=== PATIENT | male | born 1975 | race American Indian/Alaskan Native ===

== ENCOUNTER 2024-02-12 18:24 | Emergency (ER) | payer MEDICAID, SELFPAY ==
[2024-02-12 18:30] VITALS: BMI 27.2
[2024-02-12 18:31] VITALS: BP 148/89; PULSE 61; RESP 19; TEMP 36.9; O2SAT 98
[2024-02-12 19:13] VITALS: PULSE 70; RESP 18; O2SAT 98
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
[2024-02-12 19:23] VITALS: BP 123/90; PULSE 67; RESP 19; TEMP 36.9; O2SAT 96
--- NOTE | 2024-02-12 19:26 | XR_ITS ---
Examination: CT cervical spine without contrast 2-D sagittal reconstructions 2-D coronal reconstructions 3-D reconstructions. Exam date and time:February 12, 2024 1937 hrs. Indications: A tree fell on the back of the patient's neck today with neck pain CTDI:vol (mGy) 26 DLP: (mGycm) 574 Technique: Multiple 2 mm axial sections of the cervical spine have been obtained. The coronal and sagittal reconstructions have been obtained. 3-D reconstructions have been obtained. Low dose protocols were performed. One or more of the following dose reduction techniques were used; automated exposure control, adjustment of the mA and/or KV according to patient size, use of iterative reconstruction technique. Findings: Axial sections demonstrate intact base of the skull. C1 exhibit satisfactory relationship to the odontoid. No acute cervical vertebral body fracture seen. Alignment posterior spinous processes satisfactory. Advanced disc narrowing C5-C6, C6-C7 Impression: No acute cervical fracture.
[2024-02-12 20:07] VITALS: PULSE 60
--- NOTE | 2024-02-12 20:20 | XR_ITS ---
Examination: CT chest with intravenous contrast CT abdomen with intravenous contrast CT pelvis with intravenous contrast 2-D coronal and sagittal reconstructions Time of exam: February 12, 2024 1126 hrs. Indications: A tree fell on the patient's back today chest and back pain CTDI: vol (mGy) : 8.06 DLP: (mGycm): 615 Technique: Multiple axial images of the chest, abdomen and pelvis with intravenous contrast, 3.0 mm slice thickness. Images obtained post intravenous injection Isovue 370 60 cc. 2-D sagittal and coronal reconstructions. Low dose protocols were performed. One or more of the following dose reduction techniques were used; automated exposure control, adjustment of the mA and/or KV according to patient size, use of iterative reconstruction technique. Findings: Thoracic aorta pulmonary arteries intact No hemopericardium No pneumothorax pulmonary contusion or hemothorax The manubrium body the sternum thoracic vertebral bodies intact Ribs appear intact No liver splenic or renal laceration, no perinephric hematoma Abdominal aorta intact, no free blood in the abdomen No gallstones No pancreatic mass Small areas of possible mild soft tissue contusion in the subcutaneous tissue posterior chest, axial image 41 on the left side axial image 23 Negative for pneumoperitoneum Urinary bladder intact No prostatomegaly Hips bones of the pelvis intact as well as lumbar vertebral bodies Impression: Suspicious for small areas of soft tissue contusion in subcutaneous fatty tissue posterior chest Thoracic aorta pulmonary arteries intact No hemopericardium, pneumothorax, pulmonary contusion or hemothorax No abdominal parenchymal laceration Abdominal aorta intact No free blood in the abdomen Osseous structures appear intact
[2024-02-12] MEDS: DIAZEPAM INJ 5 MG/ML VIAL 2 ML IVP (20:21)
[2024-02-12] MEDS: SODIUM CHLORIDE 0.9% 500 ML 500 ML 999 ML IV (20:29)
[2024-02-12 20:51] LABS: Basophils % (Auto) 0 % (0-2.5); Eosinophils % (Auto) 0 % (0-10); Hematocrit 41.6 % (41.0-53.0); Immature Granulocytes % (Auto) 0 % (0-0); Immature Granulocytes Auto 0.02 Thou/mm3 (0.00-0.00); Lactate (Lactic Acid) 1.3 mMol/L (0.4-2.0); Lymphocytes # (Auto) 2.7 Thou/mm3 (1.0-4.8); Lymphocytes % (Auto) 23 % (10-50); Mean Corpuscular HGB Conc 36.1 g/dl (31.0-37.0); Mean Corpuscular Hemoglobin 30.2 pg (25.0-35.0); Mean Corpuscular Volume 84 fL (80-100); Monocytes # (Auto) 0.7 Thou/mm3 (0.0-0.8); Monocytes % (Auto) 6 % (0-12); Neutrophils % (Auto) 70 % (37-80); Nucleated Red Blood Cell % 0 /100 WBC (0); Platelet Count 219 Thou/mm3 (140-440); RDW Standard Deviation 35.6 fL (35.1-43.9); Red Blood Count 4.96 Miln/mm3 (4.50-5.90); White Blood Count 11.4 Thou/mm3 (3.8-10.6)
[2024-02-12 21:13] LABS: Partial Thromboplastin Time 27.9 Seconds (22.0-36.0)
[2024-02-12 21:40] LABS: Alanine Aminotransferase 25 U/L (10-49); Albumin, Serum 5.1 gm/dL (3.5-5.0); Alcohol, Blood Medical < 3.0 mg/dL (0-10.0); Alkaline Phosphatase 105 U/L (46-116); Anion Gap 11 (7-16); Aspartate Amino Transferase 28 U/L (0-34); BUN/Creatinine Ratio 17 Ratio (12-20); Blood Urea Nitrogen 17 mg/dL (9-23); Calcium 10.1 mg/dL (8.3-10.6); Calcium (Corrected) 10.1 mg/dL (8.5-10.1); Chloride 105 mMol/L (98-107); Estimated Creatinine Clearance 86.3 mL/min (>60); Globulin 2.5 gm/dL (2.3-3.5); Glucose 85 mg/dL (74-106); Lipase 85 U/L (12-53); Osmolality,Calculated 278 (275-295); Potassium 3.5 mMol/L (3.4-5.1); Sodium 139 mMol/L (136-145); Total Protein 7.6 gm/dL (5.7-8.2); Troponin I < 0.020 ng/mL (0.0-0.045); eGFR > 60 See Note
[2024-02-12] MEDS: fentaNYL CIT INJ 50 mCg/ML AMP 2ML IVP (22:52)
[2024-02-12 23:22] VITALS: BP 102/64; PULSE 54; RESP 18; TEMP 36.6; O2SAT 98
[2024-02-13] MEDS: MORPHINE SULF INJ 10 MG/ML VIAL 4 MG IVP (02:06)
[2024-02-13 02:11] VITALS: BP 118/73; PULSE 64; RESP 17; TEMP 36.8; O2SAT 98
[2024-02-13] MEDS: HYDROcodone/APAP 10/325 TAB PO (03:59)
[2024-02-13] MEDS: KETOROLAC INJ 30 MG/ML VIAL IVP (04:00)
[2024-02-13 04:23] VITALS: BP 113/86; PULSE 55; RESP 16; TEMP 36.8; O2SAT 99
== END 2024-02-13 04:25 | disposition home or self-care (01) ==
PROVIDERS: Emergency Provider Emergency Medicine; PCP Nurse Practitioner Family
DX: S20.219A Contusion of unspecified front wall of thorax, initial encounter (principal); S20.419A Abrasion of unspecified back wall of thorax, initial encounter; M54.2 Cervicalgia; R79.89 Other specified abnormal findings of blood chemistry; W11.XXXA Fall on and from ladder, initial encounter; Y93.H2 Activity, gardening and landscaping
CPT/HCPCS: 36415; 71260; 72125; 74177; 80053; 80307; 80320; 81001; 83605; 83690; 84484; 85025; 85610; 85730; 96361; 96374; 96375; 99285; A4649; J1885; J2270; J3010; J3360; J7040; Q9967; A9270; G0480

== ENCOUNTER 2024-02-23 18:18 | Emergency (ER) | payer MEDICAID, SELFPAY ==
[2024-02-23 18:21] VITALS: BMI 27.3
[2024-02-23 19:16] VITALS: BP 129/79; PULSE 57; RESP 18; TEMP 36.6; O2SAT 98
--- NOTE | 2024-02-23 19:18 | XR_ITS ---
Examination: Toes, right foot 3 views Technique: Toes AP oblique lateral 3 views, right foot Date and time of exam: February 23, 2024 1930 hrs. Indications: Injury to the foot 3 days ago, toe pain Findings: No acute fracture No dislocation Impression: No acute fracture No dislocation No opaque foreign body
--- NOTE | 2024-02-23 19:18 | EDNOTE_ITS ---
Lower Extremity Injury RME/HPI General Chief Complaint: Ankle/Foot Injury Stated Complaint: I THINK I BROKE MY RIGHT TOES Time Seen by Provider: 02/23/24 19:08 Source: patient Arrival date/time: 02/23/24 18:18 48-year-old male presents department complaining of right toe pain after he struck his foot against a corner of chimney that occurred 3 days ago. Mode of arrival: wheelchair Limitations: physical limitation Related Data Home Medications ?Medication ?Instructions ?Recorded ?Confirmed acetaminophen 300 mg-codeine 30 mg 1 tab PO Q12H PRN Pain 10/10/22 10/10/22 tablet oxycodone 5 mg tablet 5 mg PO Q8H PRN Pain 10/10/22 10/10/22 Previous Rx's ?Medication ?Instructions ?Recorded docusate sodium 100 mg capsule 100 mg PO BID #20 caps 10/07/22 (Colace) diazepam 2 mg tablet (Valium) 2 mg PO BID PRN muscle spasm #6 02/13/24 tabs meloxicam 7.5 mg tablet 7.5 mg PO QDAY #10 tabs 02/23/24 Allergies Allergy/AdvReac Type Severity Reaction Status Date / Time No Known Allergies Allergy Verified 10/10/22 07:32 Review of Systems Review of Systems Systems Reviewed: All systems reviewed, normal except as documented Constitutional Constitutional: Reports system reviewed and no additional complaints, except as documented, Denies body ache(s), Denies chills and Denies fever(s) Eyes Eyes: Reports system reviewed and no additional complaints, except as documented and Denies change in vision ENT Ears, Nose, Mouth, and Throat: Reports system reviewed and no additional complaints, except as documented, Denies disequilibrium, Denies dizziness, Denies sore throat and Denies vertigo Cardiovascular Cardiovascular: Reports system reviewed and no additional complaints, except as documented, Denies chest pain and Denies dyspnea Respiratory Respiratory: Reports system reviewed and no additional complaints, except as documented, Denies chest congestion, Denies cough and Denies dyspnea Gastrointestinal Gastrointestinal: Reports system reviewed and no additional complaints, except as documented, Denies abdominal pain, Denies nausea and Denies vomiting Musculoskeletal Musculoskeletal: Reports system reviewed and no additional complaints, except as documented, Denies abnormal gait and Reports arthralgias Integumentary/Breasts Skin/Breast: Reports system reviewed and no additional complaints, except as documented, Denies erythema, Denies rash and Denies wounds Neurologic Neurologic: Reports system reviewed and no additional complaints, except as documented, Denies abnormal gait, Denies disequilibrium, Denies dizziness and Denies vertigo Past Medical History Past Medical History NEUROLOGIC: Positive Neurological Disorders, Cerebrovascular Accident, Meningitis and Head Trauma; Negative Seizures CARDIAC: Negative Cardiac Disorders or Congestive Heart Failure RESPIRATORY: Positive Asthma and Bronchitis; Negative Chronic Obstructive Pulmonary Disease (COPD) GASTROINTESTINAL: Negative Gastrointestinal Disorders GENITOURINARY: Negative Genitourinary Disorders or Renal Disease MUSCULOSKELETAL: Positive Musculoskeletal Disorders and Fractures ENT: Positive Head Trauma ENDOCRINE: Negative Endocrine Disorders, Diabetes Mellitus Type 1 or Diabetes Mellitus Type 2 HEMATOLOGIC: Negative Blood Disorders or Sickle Cell Disease OTHER HISTORY: Positive Hospitalization and Chicken Pox; Negative Autoimmune Disease, Shingles, Blood Transfusions, Blood Transfusion Reaction, Anesthesia Reactions, MRSA, VRSA, Vancomycin-Resistant Enterococci or Cancer Family History FAMILY HISTORY: Positive Family Cardiac Disorders and Family Cancer; Negative Family Surgery or Family Anesthesia Reaction Social History SMOKING STATUS: Never smoker SECOND HAND EXPOSURE: No ED Exam General Limitations: Present physical limitation General appearance: Present alert and in no apparent distress Head Head exam: Present atraumatic Eye Eye exam: Present normal appearance, PERRL and EOMI ENT ENT exam: Present normal exam, normal oropharynx and mucous membranes moist Neck Neck exam: Present normal inspection, full ROM and trachea midline Chest Chest inspection: Present normal inspection and symmetric chest wall rise Respiratory Respiratory exam: Present normal lung sounds bilaterally Cardiovascular Cardiovascular exam: Present regular rate, normal rhythm and normal heart sounds Abdominal Exam Abdominal exam: Present soft and normal bowel sounds Extremities Exam Extremities exam: Present normal inspection and full ROM Expanded Lower Extremity Exam Top foot image: 2 1. +1 toe edema Neurovascular/Tendon exam: Present normal capillary refill Gait: observed and limited by pain Back Exam Back exam: Present normal inspection and full ROM Neurological Exam Neurological exam: Present alert, oriented X3 and CN II-XII intact Psychiatric Psychiatric exam: Present normal affect and normal mood Skin Skin exam: Present warm, dry, intact and normal color Course Quality Measures none Orders Category Date Time Status XR toe RT min 2V Stat Exams 02/23/24 19:18 Completed Ketorolac Inj [Toradol Inj] Med 02/23/24 19:18 Discontinued 30 mg IM X1 ONE Vital Signs Vital signs: Vital Signs Temperature 98 F 02/23/24 19:16 Pulse Rate 57 L 02/23/24 19:16 Respiratory Rate 18 02/23/24 19:16 Blood Pressure 129/79 02/23/24 19:16 Pulse Oximetry (%) 98 02/23/24 19:16 Oxygen Delivery Method Room Air 02/23/24 19:16 98% room air within normal limits Extremity Injury, Lower MDM Narrative MDM Narrative:: 48-year-old male presents department complaining of right toe pain after he struck his foot against a corner of chimney that occurred 3 days ago. X-rays were unremarkable for any acute fracture. Patient's affected toe was neurovascularly intact. Patient data External records reviewed:: [facility] previous records Clinical information provided by:: patient Social determinants that could affect healthcare access:: none Patient has the following chronic illnesses:: See chart How is presenting disease/condition affected by chronic disease/condition?: u neffected by Evaluation data The following diagnostics were reviewed and interpreted by me:: radiology exam(s) Lab and/or radiology exams considered but not ordered:: Ordered Interpretation Summary: Interpreted by me Medications / Prescriptions Medications or Prescriptions considered but not ordered:: Ordered Medication administrations:: Medication Administration History Discontinued Medications Ketorolac Tromethamine (Ketorolac Inj 60 Mg/2 Ml Vial) 30 mg IM X1 ONE Stop: 02/23/24 19:19 Last Admin: 02/23/24 19:24 Dose: 30 mg Documented By: OA Given Consultations Consultation(s) initiated? (list below): No Diagnosis Extremity Injury, Lower Differential Diagnosis: fracture of toe Most likely diagnosis given after review of the tests above:: Sprain of toe Admission Indicated Admission indicated?: not indicated Admission Request Was there a request for admission?: No Disposition Plan Disposition Plan: Discharge Discharge Attestation Discharge Attestation: The patient and all family members were given an opportunity to ask questions and understood the discharge instructions. Discharge instructions specifically effects, indications for sooner follow up or return to the emergency department, and the expected course of current diagnosis. Patient condition: Stable Discharge Plan Plan Patient Disposition: HOME (Self Care) Disposition Comment: Stable Prescriptions/Referrals Prescriptions/Med Rec: New meloxicam 7.5 mg tablet 7.5 mg PO QDAY Qty: 10 0RF No Action acetaminophen-codeine 300-30 mg Tablet 1 tab PO Q12H PRN (Reason: Pain) oxycodone 5 mg Tablet 5 mg PO Q8H PRN (Reason: Pain) docusate sodium [Colace] 100 mg capsule 100 mg PO BID Qty: 20 0RF Rx Instructions: While on Oxycodone diazepam [Valium] 2 mg tablet 2 mg PO BID PRN (Reason: muscle spasm) Qty: 6 0RF Referrals: Clare Morin PA-C ([facility]) [Primary Care Provider] - In 1 week Problem List Clinical Impression: Sprain of toe Patient/Caregiver Discharge Instructions Discharge Activity: activity as tolerated Education Materials: ED Toe Sprain Additional Instructions: Take medication as prescribed. Your chest x-ray did not show any acute fracture. Follow-up with primary care provider in 2 to 3 days. Return to emergency department for any worsening symptoms or as needed. Print Language: Bahraini Stand Alone Forms: Maryellen Award Info., Patient Portal Info Letter PA/SONA Supervising Physician ARELI/SONA Supervising Physician: Dr. Sifuentes
[2024-02-23] MEDS: KETOROLAC INJ 60 MG/2 ML VIAL 30 MG IM (19:24)
== END 2024-02-23 22:46 | disposition home or self-care (01) ==
PROVIDERS: Emergency Provider Emergency Medicine; PCP Nurse Practitioner Family
DX: S93.509A Unspecified sprain of unspecified toe(s), initial encounter (principal); W22.09XA Striking against other stationary object, initial encounter
CPT/HCPCS: 73660; 96372; 99283; J1885

== ENCOUNTER 2024-03-01 18:20 | Emergency (ER) | payer MEDICAID, SELFPAY ==
[2024-03-01 19:17] VITALS: BP 138/80; PULSE 65; RESP 18; TEMP 36.8; O2SAT 98; BMI 27.8
--- NOTE | 2024-03-01 19:21 | XR_ITS ---
Examination: CT cervical spine without contrast 2-D sagittal reconstructions 2-D coronal reconstructions 3-D reconstructions. Exam date and time:March 01, 2024 1934 hrs. Indications: Neck pain beginning 2 weeks ago Comparison: February 12, 2024 CTDI:vol (mGy) 8.38 DLP: (mGycm) 197 Technique: Multiple 2 mm axial sections of the cervical spine have been obtained. The coronal and sagittal reconstructions have been obtained. 3-D reconstructions have been obtained. Low dose protocols were performed. One or more of the following dose reduction techniques were used; automated exposure control, adjustment of the mA and/or KV according to patient size, use of iterative reconstruction technique. Findings: Axial sections demonstrate intact base of the skull. C1 exhibit satisfactory relationship to the odontoid. No acute cervical vertebral body fracture seen. Alignment posterior spinous processes satisfactory. Advanced disc narrowing C5-C6, C6-C7 C5-C6 moderate bilateral neural foraminal stenosis C6-C7 moderate left neural foraminal stenosis Impression: No acute cervical fracture. Advanced degenerative disc disease C5-C6, C6-C7 C5-C6 moderate left neural foraminal stenosis C6-C7 moderate left neural foraminal stenosis MRI cervical spine without contrast follow-up would be preferable in assessing for acquired soft tissue spinal stenosis
--- NOTE | 2024-03-01 19:21 | XR_ITS ---
Examination: CT brain head without contrast. 2-D sagittal coronal reconstructions Date and time of exam:March 01, 2024 1931 hrs. Indications: Headaches beginning 2 weeks ago Comparison: April 04, 2016 CTDI: vol (mGy):56.6 DLP: (mGycm):1008 Technique: Multiple CT axial sections of the brain have been obtained, 5 mm slice thickness. Contrast has not been administered. 2-D sagittal, coronal reconstructions have been obtained Low dose protocols were performed. One or more of the following dose reduction techniques were used; automated exposure control, adjustment of the mA and/or KV according to patient size, use of iterative reconstruction technique. Findings: No significant ventricular enlargement. Intra-axial or extra-axial hemorrhage density is not seen. No mass effect or midline shift Basal cisterns are not remarkable. Fourth ventricle is midline. Cranial vault intact. Impression: Negative for acute hemorrhage, mass effect or midline shift If new onset headaches persist, consider brain MRI follow-up
--- NOTE | 2024-03-01 19:21 | PD.EDRME ---
Rapid Medical Screening Exam RME Arrival date/time: 03/01/24 18:20 48-year-old male past emergency department complaining of neck and head pain since suffering injury 02/12/2024 tree branch fell on his back. Chief Complaint: Neck Pain/Injury Time Seen by Provider: 03/01/24 19:18 Vital signs: Vital Signs Temperature 98.2 F 03/01/24 19:17 Pulse Rate 65 03/01/24 19:17 Respiratory Rate 18 03/01/24 19:17 Blood Pressure 138/80 H 03/01/24 19:17 Pulse Oximetry (%) 98 03/01/24 19:17 Oxygen Delivery Method Room Air 03/01/24 19:17 Vital signs reviewed by provider: Yes
[2024-03-01] MEDS: HYDROcodone/APAP 5/325 TABLET 1 TAB PO (19:29)
--- NOTE | 2024-03-01 20:23 | EDNOTE_ITS ---
ED Neck Injury Pain RME/HPI General Chief Complaint: Neck Pain/Injury Stated Complaint: NECK/BACK PAIN, NAUSEA WHEN TURNING HEAD Time Seen by Provider: 03/01/24 19:18 Source: patient Arrival date/time: 03/01/24 18:20 48-year-old male past emergency department complaining of neck and head pain since suffering injury 02/12/2024 tree branch fell on his back. Mode of arrival: ambulatory Limitations: no limitations RME / HPI RME / HPI Narrative: 03/01/24 18:20 48-year-old male past emergency department complaining of neck and head pain since suffering injury 02/12/2024 tree branch fell on his back. Related Data Home Medications ?Medication ?Instructions ?Recorded ?Confirmed acetaminophen 300 mg-codeine 30 mg 1 tab PO Q12H PRN Pain 10/10/22 10/10/22 tablet oxycodone 5 mg tablet 5 mg PO Q8H PRN Pain 10/10/22 10/10/22 Previous Rx's ?Medication ?Instructions ?Recorded docusate sodium 100 mg capsule 100 mg PO BID #20 caps 10/07/22 (Colace) diazepam 2 mg tablet (Valium) 2 mg PO BID PRN muscle spasm #6 02/13/24 tabs meloxicam 7.5 mg tablet 7.5 mg PO QDAY #10 tabs 02/23/24 cyclobenzaprine 10 mg tablet 10 mg PO TID PRN muscle spasm #10 03/01/24 tabs ibuprofen 600 mg tablet 600 mg PO Q8H PRN pain #20 tabs 03/01/24 Allergies Allergy/AdvReac Type Severity Reaction Status Date / Time No Known Allergies Allergy Verified 10/10/22 07:32 Review of Systems Review of Systems Systems Reviewed: All systems reviewed, normal except as documented Constitutional Constitutional: Reports system reviewed and no additional complaints, except as documented, Reports body ache(s), Denies chills and Denies fever(s) Eyes Eyes: Reports system reviewed and no additional complaints, except as documented and Denies change in vision ENT Ears, Nose, Mouth, and Throat: Reports system reviewed and no additional complaints, except as documented, Denies disequilibrium, Denies dizziness, Reports neck pain, Denies sore throat and Denies vertigo Cardiovascular Cardiovascular: Reports system reviewed and no additional complaints, except as documented, Denies chest pain and Denies dyspnea Respiratory Respiratory: Reports system reviewed and no additional complaints, except as documented, Denies chest congestion, Denies cough and Denies dyspnea Gastrointestinal Gastrointestinal: Reports system reviewed and no additional complaints, except as documented, Denies abdominal pain, Denies nausea and Denies vomiting Musculoskeletal Musculoskeletal: Reports system reviewed and no additional complaints, except as documented, Denies abnormal gait, Denies arthralgias and Reports neck pain Integumentary/Breasts Skin/Breast: Reports system reviewed and no additional complaints, except as documented, Denies erythema, Denies rash and Denies wounds Neurologic Neurologic: Reports system reviewed and no additional complaints, except as documented, Denies abnormal gait, Denies disequilibrium, Denies dizziness and Denies vertigo Past Medical History Past Medical History NEUROLOGIC: Positive Neurological Disorders, Cerebrovascular Accident, Meningitis and Head Trauma; Negative Seizures CARDIAC: Negative Cardiac Disorders or Congestive Heart Failure RESPIRATORY: Positive Asthma and Bronchitis; Negative Chronic Obstructive Pulmonary Disease (COPD) GASTROINTESTINAL: Negative Gastrointestinal Disorders GENITOURINARY: Negative Genitourinary Disorders or Renal Disease MUSCULOSKELETAL: Positive Musculoskeletal Disorders and Fractures ENT: Positive Head Trauma ENDOCRINE: Negative Endocrine Disorders, Diabetes Mellitus Type 1 or Diabetes Mellitus Type 2 HEMATOLOGIC: Negative Blood Disorders or Sickle Cell Disease OTHER HISTORY: Positive Hospitalization and Chicken Pox; Negative Autoimmune Disease, Shingles, Blood Transfusions, Blood Transfusion Reaction, Anesthesia Reactions, MRSA, VRSA, Vancomycin-Resistant Enterococci or Cancer Family History FAMILY HISTORY: Positive Family Cardiac Disorders and Family Cancer; Negative Family Surgery or Family Anesthesia Reaction Social History SMOKING STATUS: Never smoker SECOND HAND EXPOSURE: No ED Exam General Limitations: Present no limitations General appearance: Present alert and in no apparent distress Head Head exam: Present atraumatic Eye Eye exam: Present normal appearance, PERRL and EOMI ENT ENT exam: Present normal exam, normal oropharynx and mucous membranes moist Neck Neck exam: Present normal inspection, full ROM and trachea midline Chest Chest inspection: Present normal inspection and symmetric chest wall rise Respiratory Respiratory exam: Present normal lung sounds bilaterally Cardiovascular Cardiovascular exam: Present regular rate, normal rhythm and normal heart sounds Abdominal Exam Abdominal exam: Present soft and normal bowel sounds Extremities Exam Extremities exam: Present normal inspection and full ROM Back Exam Back exam: Present normal inspection and full ROM Neurological Exam Neurological exam: Present alert, oriented X3 and CN II-XII intact Psychiatric Psychiatric exam: Present normal affect and normal mood Skin Skin exam: Present warm, dry, intact and normal color Course Quality Measures none Orders Category Date Time Status CT cervical spine wo con Stat Exams 03/01/24 19:[address] head/brain wo con Stat Exams 03/01/24 19:21 Completed HYDROcodone*/APAP 5/325 [[place] 5/325] Med 03/01/24 19:21 Discontinued 1 tab PO X1 ONE Vital Signs Vital signs: Vital Signs Temperature 98.2 F 03/01/24 19:17 Pulse Rate 65 03/01/24 19:17 Respiratory Rate 18 03/01/24 19:17 Blood Pressure 138/80 H 03/01/24 19:17 Pulse Oximetry (%) 98 03/01/24 19:17 Oxygen Delivery Method Room Air 03/01/24 19:17 98% room air within normal limits Neck Pain MDM Narrative MDM Narrative:: 48-year-old male past emergency department complaining of neck and head pain since suffering injury 02/12/2024 tree branch fell on his back. CT scanning of head was unremarkable. CT cervical spine findings No acute cervical fracture. Advanced degenerative disc disease C5-C6, C6-C7 C5-C6 moderate left neural foraminal stenosis C6-C7 moderate left neural foraminal stenosis Patient reported significant permanent pain with pain medication. Patient has neck supple with full active range of motion with some reported pain. Patient data External records reviewed:: [facility] previous records Clinical information provided by:: patient Social determinants that could affect healthcare access:: none Patient has the following chronic illnesses:: See chart How is presenting disease/condition affected by chronic disease/condition?: uneffected by Evaluation data The following diagnostics were reviewed and interpreted by me:: radiology exam(s) Lab and/or radiology exams considered but not ordered:: Ordered Interpretation Summary: Interpreted by me Medications / Prescriptions Medications or Prescriptions considered but not ordered:: Ordered Medication administrations:: Medication Administration History Discontinued Medications Hydrocodone Bitart/Acetaminophen (Hydrocodone/Apap 5/325 Tablet) 1 tab PO X1 ONE Stop: 03/01/24 19:22 Last Admin: 03/01/24 19:29 Dose: 1 tab Documented By: NYA Given Consultations Consultation(s) initiated? (list below): No Diagnosis Neck Differential Diagnosis: disc disorder of cervical region, closed subluxation of cervical spine, fracture of cervical spine without lesion of spinal cord, cervical radiculopathy, vertebral artery dissection, torticollis, cervical spondylosis and strain of neck muscle Most likely diagnosis given after review of the tests above:: Degenerative disc disease cervical Admission Indicated Admission indicated?: not indicated Admission Request Was there a request for admission?: No Disposition Plan Disposition Plan: Discharge Discharge Attestation Discharge Attestation: The patient and all family members were given an opportunity to ask questions and understood the discharge instructions. Discharge instructions specifically effects, indications for sooner follow up or return to the emergency department, and the expected course of current diagnosis. Patient condition: Stable Discharge Plan Plan Patient Disposition: HOME (Self Care) Disposition Comment: Stable Prescriptions/Referrals Prescriptions/Med Rec: New cyclobenzaprine 10 mg tablet 10 mg PO TID PRN (Reason: muscle spasm) Qty: 10 0RF ibuprofen 600 mg tablet 600 mg PO Q8H PRN (Reason: pain) Qty: 20 0RF No Action acetaminophen-codeine 300-30 mg Tablet 1 tab PO Q12H PRN (Reason: Pain) oxycodone 5 mg Tablet 5 mg PO Q8H PRN (Reason: Pain) docusate sodium [Colace] 100 mg capsule 100 mg PO BID Qty: 20 0RF Rx Instructions: While on Oxycodone diazepam [Valium] 2 mg tablet 2 mg PO BID PRN (Reason: muscle spasm) Qty: 6 0RF meloxicam 7.5 mg tablet 7.5 mg PO QDAY Qty: 10 0RF Referrals: Clare Morin PA-C ([facility]) [Primary Care Provider] - In 1 week Problem List Clinical Impression: Degenerative disc disease, cervical Patient/Caregiver Discharge Instructions Discharge Activity: activity as tolerated Education Materials: ED Degenerative Disk Disease Additional Instructions: Take medication as prescribed. Follow-up with primary care provider in 2 to 3 days and request MRI of cervical neck if symptoms persist. Return to emergency department for any worsening symptoms or as needed. Print Language: Polish Stand Alone Forms: Maryellen Award Info., Patient Portal Info Letter PA/SONA Supervising Physician PA/SONA Supervising Physician: Dr. Sifuentes
== END 2024-03-01 20:34 | disposition home or self-care (01) ==
PROVIDERS: Emergency Provider Emergency Medicine; PCP Nurse Practitioner Family
DX: M50.122 Cervical disc disorder at C5-C6 level with radiculopathy (principal); M48.02 Spinal stenosis, cervical region; R51.9 Headache, unspecified; W22.8XXA Striking against or struck by other objects, initial encounter
CPT/HCPCS: 70450; 72125; 99284; A9270

== ENCOUNTER → 2024-03-31 | Outpatient (CLI) | payer MEDICAID, SELFPAY ==
--- NOTE | 2024-03-31 07:45 | XR_ITS ---
Examination: MRI cervical spine without intravenous contrast Date and time of exam: March 31, 2024 0818 hours INDICATIONS: Injury to the neck February 12, 2024 with persistent neck pain COMPARISON: April 05, 2016 Technique: Multiple axial and sagittal sections of the cervical spine to been obtained. T2 weighted sagittal sections, TR 3, 270, TE 117 T1-weighted sagittal sections, TR 500, TE 11 T1-weighted axial sections, TR 607, TE 12, axial sections TR 18, TE 27 and T2 weighted transverse sections, TR 3920, TE 122. Findings: Adequate alignment cervical vertebral bodies Moderate disc narrowing C5-C6 No cervical fracture Intact odontoid No localized enlargement cervical cord Diffuse increased signal in the cervical cord C2-C3 no disc protrusion C3-C4 1 mm central disc protrusion C4-C5 moderate right neural foraminal stenosis C5-C6 3 mm central subarticular osteophyte disc complex, moderate bilateral neural foraminal stenosis C6-C7 3 mm central subarticular osteophyte disc complex, advanced bilateral neural foraminal stenosis C7-T1 no disc protrusion IMPRESSION: C4-C5 moderate right neural foraminal stenosis C5-C6 3 mm central subarticular osteophyte disc complex, moderate bilateral neural foraminal stenosis C6-C7 3 mm central subarticular osteophyte disc complex, advanced bilateral neural foraminal stenosis
== END | disposition home or self-care (01) ==
LOC: SMRI 07:50
PROVIDERS: PCP Nurse Practitioner Family; Referring Provider Nurse Practitioner Family; Visit Provider Nurse Practitioner Family
DX: M48.02 Spinal stenosis, cervical region (principal); M25.78 Osteophyte, vertebrae
CPT/HCPCS: 72141

== ENCOUNTER 2024-11-24 18:52 | Emergency (ER) | payer MEDICAID, SELFPAY ==
--- NOTE | 2024-11-24 18:56 | EKG_ITS ---
[facility] Test Date: 2024-11-24 Pat Name: SARAVANAN FISCHER Department: Room: - Gender: Male [employer] Worker: : 1975 Requested By: ED Temporary Provider Order Number: [id number] Reading MD: ED Temporary Provider Measurements Intervals [place] Rate: 58 P: 55 TN: 175 QRS: 25 QRSD: 96 T: 32 QT: 391 QTc: 385 Interpretive Statements SINUS BRADYCARDIA Compared to ECG 03/26/2018 13:34:41 No significant changes /store/S0/[id number]
[2024-11-24 19:22] VITALS: BP 154/104; PULSE 61; RESP 20; TEMP 37; O2SAT 97; BMI 31.1
--- NOTE | 2024-11-24 19:34 | XR_ITS ---
Examination: PA chest single view Technique: Upright PA chest single view Date and time: November 24, 2024, 194 hrs. Indications: Chest pain shortness of breath beginning one week ago. Findings: Normal heart size. The lungs are clear. The osseous structures are intact Impression: No active disease
--- NOTE | 2024-11-24 19:39 | PD.EDCHEST ---
ED Chest Pain RME/HPI General Chief Complaint: Chest Pain Stated Complaint: CHEST PAIN, TINGLING TO LEFT ARM Time Seen by Provider: 11/24/24 19:33 Arrival date/time: 11/24/24 18:52 49M with history of asthma and anxiety presents to ED with several weeks of CP. Patient has had a lot more stress in life recently. Patient usually takes Valium, but ran out. Limitations: no limitations Related Data Home Medications ?Medication ?Instructions ?Recorded ?Confirmed acetaminophen 300 mg-codeine 30 mg 1 tab PO Q12H PRN Pain 10/10/22 10/10/22 tablet oxycodone 5 mg tablet 5 mg PO Q8H PRN Pain 10/10/22 10/10/22 Previous Rx's ?Medication ?Instructions ?Recorded docusate sodium 100 mg capsule 100 mg PO BID #20 caps 10/07/22 (Colace) diazepam 2 mg tablet (Valium) 2 mg PO BID PRN muscle spasm #6 02/13/24 tabs meloxicam 7.5 mg tablet 7.5 mg PO QDAY #10 tabs 02/23/24 cyclobenzaprine 10 mg tablet 10 mg PO TID PRN muscle spasm #10 03/01/24 tabs ibuprofen 600 mg tablet 600 mg PO Q8H PRN pain #20 tabs 03/01/24 diazepam 5 mg tablet (Valium) 5 mg PO BID PRN anxiety #7 tabs 11/24/24 Allergies Allergy/AdvReac Type Severity Reaction Status Date / Time No Known Allergies Allergy Verified 10/10/22 07:32 Review of Systems Review of Systems Systems Reviewed: All systems reviewed, normal except as documented Cardiovascular Cardiovascular: Reports as per HPI and Reports chest pain Psychiatric Psychiatric: Reports as per HPI and Reports anxiety Past Medical History Past Medical History NEUROLOGIC: Positive Neurological Disorders, Cerebrovascular Accident, Meningitis and Head Trauma; Negative Seizures CARDIAC: Negative Cardiac Disorders or Congestive Heart Failure RESPIRATORY: Positive Asthma and Bronchitis; Negative Chronic Obstructive Pulmonary Disease (COPD) GASTROINTESTINAL: Negative Gastrointestinal Disorders GENITOURINARY: Negative Genitourinary Disorders or Renal Disease MUSCULOSKELETAL: Positive Musculoskeletal Disorders and Fractures ENT: Positive Head Trauma ENDOCRINE: Negative Endocrine Disorders, Diabetes Mellitus Type 1 or Diabetes Mellitus Type 2 HEMATOLOGIC: Negative Blood Disorders or Sickle Cell Disease OTHER HISTORY: Positive Hospitalization and Chicken Pox; Negative Autoimmune Disease, Shingles, Blood Transfusions, Blood Transfusion Reaction, Anesthesia Reactions, MRSA, VRSA, Vancomycin-Resistant Enterococci or Cancer Family History FAMILY HISTORY: Positive Family Cardiac Disorders and Family Cancer; Negative Family Surgery or Family Anesthesia Reaction Social History SMOKING STATUS: Never smoker SECOND HAND EXPOSURE: No ED Exam General Limitations: Present no limitations General appearance: Present alert, in no apparent distress and anxious Head Head exam: Present atraumatic Neck Neck exam: Present normal inspection, full ROM and trachea midline Chest Chest inspection: Present normal inspection and symmetric chest wall rise Neurological Exam Neurological exam: Present alert and oriented X3 Psychiatric Psychiatric exam: Present normal affect, normal mood and anxious Skin Skin exam: Present warm, dry, intact and normal color Course Quality Measures none Orders Category Date Time Status EKG (ED ONLY) *Do not use* NOW Care 11/24/24 18:56 Completed EKG (ED Only) Stat Exams 11/24/24 18:56 Draft XR chest 1V portable Stat Exams 11/24/24 19:34 Completed CBC Stat Lab 11/24/24 19:42 Completed Comprehensive Metabolic Panel Stat Lab 11/24/24 19:42 Completed Troponin I Stat Lab 11/24/24 19:42 Completed Diazepam [Valium] Med 11/24/24 19:34 Discontinued 5 mg PO X1 ONE Vital Signs Vital signs: Vital Signs Temperature 98.6 F 11/24/24 19:22 Pulse Rate 61 11/24/24 19:22 Respiratory Rate 20 11/24/24 19:22 Blood Pressure 154/104 H 11/24/24 19:22 Pulse Oximetry (%) 97 11/24/24 19:22 Oxygen Delivery Method Room Air 11/24/24 19:22 O2 at 97% on RA and WNLs Chest Pain MDM Narrative MDM Narrative:: 49M with history of asthma and anxiety presents to ED with several weeks of CP. Patient has had a lot more stress in life recently. Patient usually takes Valium, but ran out. Physical exam reveals anxious male. Patient is afebrile and alert. EKG is sinus linda of 58. CXR unremarkable. No leukocytosis or gross anemia. CMP unremarkable. Trop normal. 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 Patient data External records reviewed:: [facility] previous records Clinical information provided by:: patient Social determinants that could affect healthcare access:: mental health Patient has the following chronic illnesses:: anxiety and asthmaq How is presenting disease/condition affected by chronic disease/condition?: exacerbated by Evaluation data The following diagnostics were reviewed and interpreted by me:: lab results, radiology exam(s) and EKG tracing(s) Lab and/or radiology exams considered but not ordered:: ordered Interpretation Summary: above Medications / Prescriptions Medications or Prescriptions considered but not ordered:: ordered Medication administrations:: Medication Administration History Discontinued Medications Diazepam (Diazepam 5 Mg Tablet) 5 mg PO X1 ONE Stop: 11/24/24 19:35 Last Admin: 11/24/24 19:45 Dose: 5 mg Documented By: MF above Consultations Consultation(s) initiated? (list below): No Diagnosis Chest Pain Differential Diagnosis: fracture of rib, pneumothorax, stable angina, unstable angina pectoris, atypical chest pain, st elevation myocardial infarction, costochondritis, chest pain, biliary colic and other (anxiety due to stress) Most likely diagnosis given after review of the tests above:: anxiety due to stress Admission Indicated Admission indicated?: not indicated Admission Request Was there a request for admission?: No Disposition Plan Disposition Plan: Discharge Discharge Attestation Discharge Attestation: The patient and all family members were given an opportunity to ask questions and understood the discharge instructions. Discharge instructions specifically effects, indications for sooner follow up or return to the emergency department, and the expected course of current diagnosis. Patient condition: Stable Discharge Plan Plan Patient Disposition: HOME (Self Care) Discharge Disposition comment: Stable Prescriptions/Referrals Prescriptions/Med Rec: New diazepam [Valium] 5 mg tablet 5 mg PO BID PRN (Reason: anxiety) Qty: 7 0RF No Action acetaminophen-codeine 300-30 mg Tablet 1 tab PO Q12H PRN (Reason: Pain) oxycodone 5 mg Tablet 5 mg PO Q8H PRN (Reason: Pain) docusate sodium [Colace] 100 mg capsule 100 mg PO BID Qty: 20 0RF Rx Instructions: While on Oxycodone cyclobenzaprine 10 mg tablet 10 mg PO TID PRN (Reason: muscle spasm) Qty: 10 0RF ibuprofen 600 mg tablet 600 mg PO Q8H PRN (Reason: pain) Qty: 20 0RF diazepam [Valium] 2 mg tablet 2 mg PO BID PRN (Reason: muscle spasm) Qty: 6 0RF meloxicam 7.5 mg tablet 7.5 mg PO QDAY Qty: 10 0RF Referrals: Clare Morin PA-C ([facility]) [Primary Care Provider] - In 1 week Problem List Clinical Impression: Anxiety in acute stress reaction Patient/Caregiver Discharge Instructions Education Materials: Your Body's Response to Anxiety Additional Instructions: Please follow-up with PCP within 24-48 hours and return immediately if symptoms worsen. Print Language: German Stand Alone Forms: Patient Portal Info Letter ARELI/SONA Supervising Physician ARELI/SONA Supervising Physician: Dr. Palma
[2024-11-24] MEDS: DIAZEPAM 5 MG TABLET PO (19:45)
[2024-11-24 20:10] LABS: Basophils # (Auto) 0.0 Thou/mm3 (0.0-0.2); Basophils % (Auto) 0 % (0-2.5); Eosinophils # (Auto) 0.2 Thou/mm3 (0.0-0.5); Eosinophils % (Auto) 3 % (0-10); Hematocrit 42.4 % (41.0-53.0); Hemoglobin 14.4 g/dL (13.5-16.0); Immature Granulocytes Auto 0.01 Thou/mm3 (0.00-0.00); Lymphocytes # (Auto) 2.9 Thou/mm3 (1.0-4.8); Lymphocytes % (Auto) 41 % (10-50); Mean Corpuscular HGB Conc 34.0 g/dl (31.0-37.0); Mean Corpuscular Hemoglobin 29.9 pg (25.0-35.0); Mean Corpuscular Volume 88 fL (80-100); Monocytes # (Auto) 0.6 Thou/mm3 (0.0-0.8); Monocytes % (Auto) 8 % (0-12); Neutrophils # (Auto) 3.4 Thou/mm3 (1.8-7.7); Neutrophils % (Auto) 48 % (37-80); Nucleated Red Blood Cell # 0.00 Thou/mm3 (0.00-0.00); Nucleated Red Blood Cell % 0 /100 WBC (0); Platelet Count 231 Thou/mm3 (140-440); RDW Standard Deviation 38.0 fL (35.1-43.9); Red Blood Count 4.82 Miln/mm3 (4.50-5.90); White Blood Count 7.1 Thou/mm3 (3.8-10.6)
[2024-11-24 20:34] LABS: Alanine Aminotransferase 69 U/L (10-49); Albumin, Serum 4.8 gm/dL (3.5-5.0); Albumin/Globulin Ratio 1.9 (1.2-2.2); Alkaline Phosphatase 105 U/L (46-116); Anion Gap 7 (7-16); Aspartate Amino Transferase 37 U/L (0-34); BUN/Creatinine Ratio 11 Ratio (12-20); Bilirubin,Total 0.5 mg/dL (0.3-1.2); Blood Urea Nitrogen 12 mg/dL (9-23); Calcium 9.6 mg/dL (8.3-10.6); Calcium (Corrected) 9.6 mg/dL (8.5-10.1); Carbon Dioxide 26.9 mMol/L (20.0-31.0); Chloride 106 mMol/L (98-107); Creatinine (Component) 1.1 mg/dL (0.6-1.3); Estimated Creatinine Clearance 89.0 mL/min (>60); Globulin 2.5 gm/dL (2.3-3.5); Glucose 90 mg/dL (74-106); Osmolality,Calculated 279 (275-295); Potassium 4.1 mMol/L (3.4-5.1); Sodium 140 mMol/L (136-145); Total Protein 7.3 gm/dL (5.7-8.2); Troponin I < 0.020 ng/mL (0.0-0.045); eGFR > 60 See Note
== END 2024-11-24 21:10 | disposition home or self-care (01) ==
PROVIDERS: Physician Assistant; Emergency Provider Emergency Medicine; PCP Nurse Practitioner Family
DX: F41.1 Generalized anxiety disorder (principal); F43.0 Acute stress reaction; R07.9 Chest pain, unspecified; J45.909 Unspecified asthma, uncomplicated
CPT/HCPCS: 36415; 71045; 80053; 84484; 85025; 93005; 99283; A9270